=== PATIENT | male | born 1990 | race African-American/Black ===

== ENCOUNTER 2018-04-03 23:50 | Emergency (ER) | payer OTHER ==
[2018-04-03 23:53] VITALS: BP 152/87; PULSE 90; TEMP 98.2; BMI 30.8
--- NOTE | 2018-04-04 01:20 | PDOC ---
Attending Attestation - Resident Resident Name: SonЕкатерина - ED Attending Attestation I have performed the following: I have examined & evaluated the patient, The case was reviewed & discussed with the resident, I agree w/resident's findings & plan, Exceptions are as noted - Medical Decision Making 04/04/18 01:19 27yoM concerned he has "chlamydia in my mouth" and "bumps on my tongue" OP examination is entirely normal -- bumps are posterior taste buds and pt's tongue has normal appearance. NO intraoral lesions. - pt is insistent on urine STD testing. WIll send urine GC/CT and pt may follow up on results - DC. F/u w/ your dentist for oral concerns. <Aliya Ramon - Last Filed: 04/04/18 01:19> - HPI HPI: 04/04/18 01:54 The patient is a 27 year old male with no past medical history who presents to the emergency department for evaluation of tongue. The patient reports a 1 week history of a white coating on his tongue which he believes is Chlamydia after searching for symptoms on Google. Patient states he wants a STD test. He notes he had an appointment with his PCP tomorrow, but is unable to attend which prompted him to visit the ED today. The patient denies chest pain, shortness of breath, headache, and dizziness. Denies fever, chills, nausea, vomiting, any bowel/urinary symptoms. Allergies: NKDA Social History: No reported alcohol, cigarette, or drug testing. Surgical History: Denies. - Physicial Exam PE: NAD MMM, OP WNL WWP, no rash Neuro grossly intact, gait WNL, moving all 4 A&O x 3, mood/affect WNL. <Carlos Alberto Brown - Last Filed: 04/04/18 01:55> Attestations - Attestations Documentation prepared by Carlos Alberto Brown, acting as medical detail representative for Aliya Ramon MD. <Carlos Alberto Brown - Last Filed: 04/04/18 01:55>
--- NOTE | 2018-04-04 01:37 | PDOC ---
History of Present Illness - General Chief Complaint: Oral Ulcers Stated Complaint: BUMP Time Seen by Provider: 04/04/18 00:39 - History of Present Illness Initial Comments: 04/04/18 02:52 27 year old with no significant history who presents with tongue lesions for 1 week. The patient states that he focuses on cleaning his tongue and realized he has several bumps on the back of his tongue. The patient denies itchiness, pain , or redness of the lesions. He denies any changes in eating habits or ability to swallow or breathe. He denies noticing these lesions in any other part of the body. He has no other complaints at bedside. PMHX: none PSHX: none Meds: none Allrgies: none Tob; none Etoh: none Rec drugs: none Past History - Past Medical History Allergies/Adverse Reactions: Allergies Allergy/AdvReac Type Severity Reaction Status Date / Time No Known Allergies Allergy Verified 04/03/18 23:53 Home Medications: Ambulatory Orders Amoxicillin - [Amoxicillin 500mg Capsule -] 500 mg PO BID 11/03/14 COPD: No - Suicide/Smoking/Psychosocial Hx Smoking History: Never smoked Review of Systems - Review of Systems Able to Perform ROS?: Yes Is the patient limited Mauritian proficient: No Constitutional: No: Chills, Diaphoresis, Fever, Loss of Appetite HEENTM: No: Blurred Vision, Tinnitus Respiratory: No: Cough, Orthopnea, Shortness of Breath Cardiac (ROS): No: Chest Pain ABD/GI: No: Constipated, Diarrhea : No: Burning, Dysuria Musculoskeletal: No: Back Pain Neurological: No: Headache, Numbness, Tingling *Physical Exam - Vital Signs Last Vital Signs Temp Pulse Resp BP Pulse Ox 98.2 F 90 18 152/87 97 04/03/18 23:51 04/03/18 23:51 04/03/18 23:51 04/03/18 23:51 04/03/18 23:51 - Physical Exam Comments: 04/04/18 02:58 GENERAL: Awake, alert, and fully oriented, in no acute distress HEAD: No signs of trauma, normocephalic, atraumatic EYES: EOMI, sclera anicteric, conjunctiva clear ENT: oropharynx clear without exudates. Moist mucosa NECK: Normal ROM LUNGS: No distress, speaks full sentences, clear to auscultation bilaterally HEART: Regular rate and rhythm, normal S1 and S2, no murmurs, rubs or gallops, peripheral pulses normal and equal bilaterally. ABDOMEN: Soft, nontender, normoactive bowel sounds. No guarding, no rebound. No masses EXTREMITIES : Normal inspection, Normal range of motion, no edema. No clubbing or cyanosis. NEUROLOGICAL: Normal speech, normal gait, no focal sensorimotor deficits SKIN: Warm, Dry, normal turgor, no rashes or lesions noted Medical Decision Making - Medical Decision Making 04/04/18 02:[age] year old with no significant history who presents with tongue lesions for 1 week. The patient states that he focuses on cleaning his tongue and realized he has several bumps on the back of his tongue. The patient's symptoms and history are most consistent with regular anatomy of posterior taste buds. The patient noted that he noticed the bumps and had googled them and was concerned over what he read and that is what brought him to the ED. On reassessment the patient expresses concern for STDs. Urine was taken, and patient will be informed of results. Patient stable for discharge. *DC/Admit/Observation/Transfer Diagnosis at time of Disposition: Tongue lesion - Discharge Dispostion Disposition: HOME Condition at time of disposition: Stable Decision to Admit order: No - Referrals - Patient Instructions Additional Instructions: You were seen in the ED for tongue lesions. In the ED you were evaluated with physical exam. There did not appear a need to be hospitalization at this time. It is likely that your tongue lesions are your tastebuds. You are advised to follow up with your primary care physician within 1 -2 weeks. Return to the ED if you experience sore throat, bleedings from the gums, blood in saliva or headache, runny nose or congestion. - Post Discharge Activity
== END 2018-04-04 03:02 | disposition home or self-care (01) ==
LOC: JER 23:50
DX: K14.8 Other diseases of tongue (principal)
CPT/HCPCS: 36415; 87491; 87591; 99281-25